=== PATIENT | female | born 1990 | race Caucasian/White ===

== ENCOUNTER 2017-02-17 17:00 | Emergency (ER) | payer MEDICAID ==
[~2017-02-17] VITALS: Ht 175.3 cm; Wt 63.9 kg
[~2017-02-17 17:00] MED LIST: HYDR-569 PO; NO HOME MEDS
[2017-02-17 17:04] VITALS: BP 127/97
[2017-02-17] MEDS ORDERED: DOXY100C43 PO (17:19)
== END 2017-02-17 17:23 | disposition home or self-care (01) ==
LOC: ER 17:00
DX: L70.0 Acne vulgaris (principal); F12.10 Cannabis abuse, uncomplicated; F15.10 Other stimulant abuse, uncomplicated; Z86.14 Personal history of Methicillin resistant Staphylococcus aureus infection; Z59.0 Homelessness
CPT/HCPCS: 99283

== ENCOUNTER 2017-07-08 12:29 | Emergency (ER) | payer MEDICAID ==
[~2017-07-08] VITALS: Ht 165.1 cm; Wt 68.0 kg
[2017-07-08] MEDS ORDERED: POLOS EACHEYE (12:46)
[2017-07-08 13:16] VITALS: BP 122/71
== END 2017-07-08 13:20 | disposition home or self-care (01) ==
LOC: ER 12:29
DX: H10.9 Unspecified conjunctivitis (principal); F12.10 Cannabis abuse, uncomplicated; F15.10 Other stimulant abuse, uncomplicated; Z79.899 Other long term (current) drug therapy; Z56.0 Unemployment, unspecified; Z59.0 Homelessness; Z60.2 Problems related to living alone
CPT/HCPCS: 99283

== ENCOUNTER 2020-09-18 08:56 | Emergency (ER) | payer MEDICAID ==
[~2020-09-18 08:56] MED LIST changes: +HYDR-4383 PO; -HYDR-569 PO
== END 2020-09-18 10:49 | disposition left against medical advice (07) ==
LOC: ER 08:57
DX: L73.1 Pseudofolliculitis barbae (principal); Z53.21 Procedure and treatment not carried out due to patient leaving prior to being seen by health care provider

== ENCOUNTER 2021-10-01 10:27 | Emergency (ER) | payer MEDICAID ==
[~2021-10-01] VITALS: Ht 165.1 cm; Wt 59.2 kg
[2021-10-01 10:30] VITALS: BP 146/90
[2021-10-01] MEDS ORDERED: OMEP40CA21 PO (10:58)
== END 2021-10-01 11:23 | disposition home or self-care (01) ==
LOC: ER 10:27
DX: R12 Heartburn (principal); F12.90 Cannabis use, unspecified, uncomplicated; F15.20 Other stimulant dependence, uncomplicated; Z59.00 Homelessness unspecified; Z56.0 Unemployment, unspecified
CPT/HCPCS: 99282